=== PATIENT | female | born 1990 ===

== ENCOUNTER 2017-01-01 07:28 | Emergency (ER) | payer BC, OTHER ==
[2017-01-01 07:40] VITALS: BMI 26.6
[2017-01-01] MEDS ORDERED: Iohexol 240 (50 ml) PO ONE (08:34)
[2017-01-01] MEDS ORDERED: Sodium Chloride 0.9% 1,000 ML IV STA (08:35)
[2017-01-01] MEDS ORDERED: Iohexol 240 (50 ml) ONE (08:37)
--- NOTE | 2017-01-01 08:40 | ED PDOC ---
HPI: Abdomen Time Seen by Provider: 01/01/17 08:00 Chief Complaint (Nursing): Abdominal Pain Chief Complaint (Provider): Abdominal pain History Per: Patient History/Exam Limitations: no limitations Onset/Duration Of Symptoms: Days (1) Outside of [place] travel?: No Current Symptoms Are (Timing): Still Present Location Of Pain/Discomfort: RLQ, LLQ Quality Of Discomfort: "Pain" Associated Symptoms: Vomiting (bilious). denies: Diarrhea Additional History Per: Patient Additional Complaint(s): The pt is a 26yo female, PMHx of IBS and colitis, presents to ED for evaluation of severe abdominal pain, present since last night. Pt reports the pain is located in her RLQ but radiates to her LLQ. She reports some associated bilious vomiting; denies any bloody diarrhea. Pt offers no additional medical complaints. Abnormal Vaginal Bleeding: No Past Medical History Reviewed: Historical Data, Nursing Documentation, Vital Signs Vital Signs: Last Vital Signs Temp 97.6 F 01/01/17 14:58 Pulse 78 01/01/17 14:58 Resp 20 01/01/17 14:58 BP 128/76 01/01/17 14:58 Pulse Ox 98 01/01/17 14:58 - Medical History Other PMH: Colitis, IBS - Surgical History Surgical History: No Surg Hx - Family History Family History: States: Unknown Family Hx - Social History Current smoker - smoking cessation education provided: No Alcohol: None Drugs: Cannabis (occaisonal) - Home Medications Home Medications: Ambulatory Orders Medication Instructions Recorded Acetaminophen/Oxycodone Hydr 1 tab PO Q6H PRN #5 tab 01/01/17 [Oxycodone and Acetaminophen 325 mg-2.5 mg] Ibuprofen [Motrin] 600 mg PO Q6H PRN #20 tab 01/01/17 Nitrofurantoin Macrocrystals 100 mg PO BID #14 cap 01/01/17 [Macrobid] Tamsulosin [Flomax] 0.4 mg PO DAILY #14 cap 01/01/17 - Allergies Allergies/Adverse Reactions: Allergies Allergy/AdvReac Type Severity Reaction Status Date / Time No Known Allergies Allergy Verified 01/01/17 07:54 Review of Systems ROS Statement: Except As Marked, All Systems Reviewed And Found Negative Gastrointestinal: Positive for: Vomiting, Abdominal Pain. Negative for: Diarrhea Physical Exam - Reviewed Nursing Documentation Reviewed: Yes Vital Signs Reviewed: Yes - Physical Exam Appears: Positive for: Well, Non-toxic, Uncomfortable Head Exam: Positive for: ATRAUMATIC, NORMAL INSPECTION, NORMOCEPHALIC Skin: Positive for: Normal Color, Warm Eye Exam: Positive for: Normal appearance Neck: Positive for: Normal, Supple Cardiovascular/Chest: Positive for: Regular Rate, Rhythm Respiratory: Positive for: Normal Breath Sounds. Negative for: Respiratory Distress Gastrointestinal/Abdominal: Positive for: Soft, Tenderness (right lower quadrant ). Negative for: Mass, Distended Neurologic/Psych: Positive for: Alert, Oriented - Laboratory Results Result Diagrams: 01/01/17 08:50 01/01/17 08:50 - ECG O2 Sat by Pulse Oximetry: 100 (RA) Pulse Ox Interpretation: Normal Medical Decision Making Medical Decision Making: Time: 829 Impression: abdominal pain r/o appendicitis, intrabdominal abscess Plan: -- CMP -- CBC -- Lipase -- Morphine 4 mg IV -- Zofran 4 mg IV -- IV fluids -- CT AP w/ PO & IV Contrast -- Reassess Scribe Attestation: Documented by Manjula Lozada acting as a scribe for Erich Barrow MD. Provider Attestation: All medical record entries made by the Scribe were at my direction and personally dictated by me. I have reviewed the chart and agree that the record accurately reflects my personal performance of the history, physical exam, medical decision making, and the department course for this patient. I have also personally directed, reviewed, and agree with the discharge instructions and disposition. ED OBSERVATION Date of observation admission: 01/01/17 Time of observation admission: 08:34 - Observation admission statement Patient is being placed in observation because:: Pt awaiting CT AP w/ PO and IV contrast - Progress Note Progress Note: 01/01/17 10:50 Normal white blood count. Normal liver function. 01/01/17 14:08 CT AP Impression: High grade obstruction related proximal 2mm right ureteral calculus. Periureteral inflammatory changes and mild hydronephrosis. No CT finding of acute appendicitis. 01/01/17 14:[address] Khan who reviewed CT and agree with plan for dc and outpt follow up. Informed to send pt home w/ urine strainer. relayed all this information to patient. Pt stable for d.c home. 01/03/17 21:22 Disposition - Clinical Impression Clinical Impression: Nephrolithiasis - Patient ED Disposition Is Patient to be Admitted: No Counseled Patient/Family Regarding: Studies Performed, Diagnosis, Need For Followup - Disposition Referrals: Fátima Khan MD [Medical Doctor] - Disposition: Routine/Home Disposition Time: 12:08 Condition: IMPROVED Additional Instructions: follow up with your urologist as instructed return to the ED with any worsening or concerning symptoms Prescriptions: Acetaminophen/Oxycodone Hydr [Oxycodone and Acetaminophen 325 mg-2.5 mg] 1 tab PO Q6H PRN #5 tab PRN Reason: Pain, Severe (8-10) Ibuprofen [Motrin] 600 mg PO Q6H PRN #20 tab PRN Reason: Pain, Moderate (4-7) Nitrofurantoin Macrocrystals [Macrobid] 100 mg PO BID #14 cap Tamsulosin [Flomax] 0.4 mg PO DAILY #14 cap Instructions: Kidney Stones (ED), How to Strain Your Urine (ED) Forms: [facility] ED School/Work Excuse
[2017-01-01 09:04] LABS: BASO # 0.1 K/uL (0.0-0.2); BASO % 0.6 % (0.0-2.0); EOS # 0.2 K/uL (0.0-0.7); EOS % 1.8 % (0.0-4.0); HEMOGLOBIN 12.9 g/dL (12.0-16.0); LYMPH # 4.6 K/uL (1.0-4.3); LYMPH % 53.8 % (20.0-40.0); MEAN CELL VOLUME 86.5 fl (81.0-99.0); MEAN CORPUSCULAR HEMOGLOBIN 28.4 pg (27.0-31.0); MEAN CORPUSCULAR HGB CONC 32.9 g/dL (33.0-37.0); MEAN PLATELET VOLUME 7.5 fl (7.2-11.7); MONO # 0.6 K/uL (0.0-0.8); MONO % 6.7 % (0.0-10.0); NEUT # 3.2 K/uL (1.8-7.0); NEUT % 37.1 % (50.0-75.0); NRBC % 0.1 % (0.0-0.0); RBC 4.54 Mil/uL (3.80-5.20); RED CELL DISTRIBUTION WIDTH 13.5 % (11.5-14.5); WHITE BLOOD COUNT 8.6 K/uL (4.8-10.8)
[2017-01-01 09:18] LABS: ALB/GLOB RATIO 1.3 (1.0-2.1); ALBUMIN 4.4 g/dL (3.5-5.0); ALT/SGPT 69 U/L (9-52); AST/SGOT 41 U/L (14-36); BLOOD UREA NITROGEN 10 mg/dl (7-17); CALCIUM 9.7 mg/dL (8.4-10.2); GFR AFRICAN-AMERICAN > 60; GFR NON-AFRICAN AMERICAN > 60
[2017-01-01 11:20] LABS: SQUAMOUS EPITHIAL 5 /hpf (0-5); URINE BACTERIA FEW (<OCC); URINE BILIRUBIN NEGATIVE (NEGATIVE); URINE BLOOD LARGE (NEGATIVE); URINE CLARITY SLIGHTY-CLOUDY (Clear); URINE COLOR YELLOW (YELLOW); URINE GLUCOSE (UA) NEG (Normal); URINE LEUKOCYTE ESTERASE NEG Leu/uL (Negative); URINE NITRATE NEGATIVE (NEGATIVE); URINE PROTEIN 30 mg/dL (NEGATIVE); URINE UROBILINOGEN 0.2-1.0 mg/dL (0.2-1.0)
[2017-01-01 12:05] VITALS: PULSE 78; RESP 20
[2017-01-01] MEDS ORDERED: Sodium Chloride 0.9% 50 ML IV ONE (12:46)
[2017-01-01] MEDS ORDERED: Iohexol 300 100 ML IJ ONE (12:46)
--- NOTE | 2017-01-01 14:05 | CT ---
PROCEDURE: CT Abdomen and Pelvis with contrast HISTORY: Right lower quadrant abdominal pain. Hematuria. No elevated white count. COMPARISON: None. TECHNIQUE: Contrast dose: 95 cc Omnipaque 300 Radiation dose: Total exam DLP = 631.76 mGy-cm. This CT exam was performed using one or more of the following dose reduction techniques: Automated exposure control, adjustment of the mA and/or kV according to patient size, and/or use of iterative reconstruction technique. FINDINGS: LOWER THORAX: Unremarkable. LIVER: Indeterminate likely benign mass perhaps a meningioma right hepatic lobe 10 x 11 mm. Hepatic steatosis identified. GALLBLADDER AND BILE DUCTS: Unremarkable. PANCREAS: Unremarkable. No gross lesion or ductal dilatation. SPLEEN: Unremarkable. ADRENALS: Unremarkable. No mass. KIDNEYS AND URETERS: High-grade obstruction right kidney related to proximal calculus measuring 2 mm. Periureteral stranding identified. The right collecting system is mildly dilated. VASCULATURE: Unremarkable. No aortic aneurysm. BOWEL: Unremarkable. No obstruction. No gross mural thickening. APPENDIX: No abnormalities to suggest acute appendicitis. No right lower quadrant inflammatory processes identified. PERITONEUM: Unremarkable. No free fluid. No free air. LYMPH NODES: Unremarkable. No enlarged lymph nodes. BLADDER: Unremarkable. REPRODUCTIVE: Unremarkable. BONES: No acute fracture. OTHER FINDINGS: None. IMPRESSION: High-grade obstruction related proximal 2 mm right ureteral calculus. Periureteral inflammatory changes and mild hydronephrosis. No CT findings of acute appendicitis. Communication of results: I discussed findings directly with referring physician in the emergency department at 13:59. January 01, 2017.
[2017-01-01 14:59] VITALS: BP 128/76; TEMP 97.6
[2017-01-03 21:23] VITALS: O2SAT 100
== END 2017-01-01 14:59 | disposition home or self-care (01) ==
LOC: H.ER 07:28
DX: N13.2 Hydronephrosis with renal and ureteral calculous obstruction (principal); N20.2 Calculus of kidney with calculus of ureter; K58.9 Irritable bowel syndrome, unspecified

== ENCOUNTER 2017-01-09 15:11 | Observation (INO) | payer OTHER ==
[2017-01-09 15:11] VITALS: BMI 26.6
[2017-01-09] MEDS ORDERED: Sodium Chloride 0.9% 1,000 ML IV STA (15:43)
--- NOTE | 2017-01-09 15:46 | ED PDOC ---
HPI: Abdomen Time Seen by Provider: 01/09/17 15:37 Chief Complaint (Nursing): Female Genitourinary History Per: Patient Onset/Duration Of Symptoms: Days (6) Current Symptoms Are (Timing): Still Present Severity: Moderate Pain Scale Rating Of: 5 Location Of Pain/Discomfort: Other (Right flank) Quality Of Discomfort: Aching Associated Symptoms: Nausea Exacerbating Factors: None Alleviating Factors: None Additional Complaint(s): Right flank pain radiates to front. Seen here 6 days ago with right kidney stone. Has not passed stone. No improvement with Percocet. Past Medical History Vital Signs: Last Vital Signs Temp 98 F 01/09/17 15:29 Pulse 66 01/09/17 15:29 Resp 18 01/09/17 15:29 BP 138/88 01/09/17 15:29 Pulse Ox 99 01/09/17 15:47 - Medical History Other PMH: IBS - Family History Family History: States: Unknown Family Hx - Home Medications Home Medications: Ambulatory Orders Medication Instructions Recorded Acetaminophen/Oxycodone Hydr 1 tab PO Q6H PRN #5 tab 01/01/17 [Oxycodone and Acetaminophen 325 mg-2.5 mg] Ibuprofen [Motrin] 600 mg PO Q6H PRN #20 tab 01/01/17 Nitrofurantoin Macrocrystals 100 mg PO BID #14 cap 01/01/17 [Macrobid] Tamsulosin [Flomax] 0.4 mg PO DAILY #14 cap 01/01/17 - Allergies Allergies/Adverse Reactions: Allergies Allergy/AdvReac Type Severity Reaction Status Date / Time No Known Allergies Allergy Verified 01/01/17 07:54 Review of Systems Constitutional: Negative for: Fever Gastrointestinal: Positive for: Nausea Musculoskeletal: Positive for: Back Pain Physical Exam - Physical Exam Appears: Positive for: Non-toxic, Uncomfortable Skin: Positive for: Normal Color, Warm, DRY Gastrointestinal/Abdominal: Positive for: Bowel Sounds, Soft. Negative for: Tenderness Back: Negative for: L CVA Tenderness, R CVA Tenderness - ECG O2 Sat by Pulse Oximetry: 99 Disposition - Clinical Impression Clinical Impression: Nephrolithiasis, Intractable pain - Patient ED Disposition Is Patient to be Admitted: Yes - Disposition Disposition Time: 15:57 Condition: FAIR - Pt Status Changed To: Hospital Disposition Of: Observation - POA Present On Arrival: None
[2017-01-09 16:42] LABS: BASO # 0.1 K/uL (0.0-0.2); BASO % 1.4 % (0.0-2.0); EOS # 0.1 K/uL (0.0-0.7); LYMPH # 3.4 K/uL (1.0-4.3); LYMPH % 55.5 % (20.0-40.0); MEAN CORPUSCULAR HEMOGLOBIN 28.6 pg (27.0-31.0); MEAN CORPUSCULAR HGB CONC 33.2 g/dL (33.0-37.0); MEAN PLATELET VOLUME 7.8 fl (7.2-11.7); MONO # 0.5 K/uL (0.0-0.8); MONO % 7.5 % (0.0-10.0); NEUT # 2.1 K/uL (1.8-7.0); NEUT % 33.6 % (50.0-75.0); RBC 4.18 Mil/uL (3.80-5.20); RED CELL DISTRIBUTION WIDTH 13.3 % (11.5-14.5); WHITE BLOOD COUNT 6.1 K/uL (4.8-10.8)
[2017-01-09 16:57] LABS: ALB/GLOB RATIO 1.4 (1.0-2.1); ALBUMIN 4.4 g/dL (3.5-5.0); ALT/SGPT 46 U/L (9-52); AST/SGOT 37 U/L (14-36); BLOOD UREA NITROGEN 13 mg/dl (7-17); CALCIUM 9.9 mg/dL (8.4-10.2); GFR AFRICAN-AMERICAN > 60; GFR NON-AFRICAN AMERICAN > 60
[2017-01-09 17:28] LABS: PROTHROMBIN TIME 10.9 Seconds (9.8-13.1)
[2017-01-09] MEDS ORDERED: Midazolam 2 MG/2 ML VIAL ONE (18:20)
[2017-01-09] MEDS ORDERED: Propofol 10 mg/ml Inj (20 ML) ONE ×2 (18:20→19:30)
[2017-01-09] MEDS ORDERED: Phenylephrine 10 mg/ml Inj ONE (18:28)
[2017-01-09] MEDS ORDERED: Lactated Ringer's 1,000 ML IV ONE ×2 (18:55→20:53)
[2017-01-09] MEDS ORDERED: cefTRIAXone (Rocephin) 1 gm Inj ONE (19:01)
[2017-01-09] MEDS ORDERED: Dexamethasone 4 mg/1 ml ONE (19:01)
[2017-01-09] MEDS ORDERED: cefTRIAXone (Rocephin) 1 gm Inj IM ONE (19:03)
[2017-01-09] MEDS ORDERED: ePHEDrine 50 mg/ml Inj ONE (19:19)
[2017-01-09] MEDS ORDERED: HYDROmorphone 0.5 mg/0.5 ml ISec IVP PRN (19:54)
[2017-01-09] MEDS ORDERED: BSS 15 ML 15 ML IR ONE (20:01)
[2017-01-09] MEDS ORDERED: Trimethobenzamide 200 mg/2 mL Inj IM ONE (20:12)
[2017-01-09] MEDS ORDERED: BSS 15 ML SOL IR ONE (20:16)
[2017-01-09 21:52] VITALS: BP 126/79; PULSE 90; RESP 19; TEMP 97.7; O2SAT 96
--- NOTE | 2017-01-10 08:12 | CARD ---
APPROVED REPORT EKG Measurement Heart [id number] <Conclusion> Normal sinus rhythm Normal ECG
--- NOTE | 2017-01-12 09:34 | RAD ---
PROCEDURE: Intraoperative Fluoroscopy. HISTORY: Cysto. FINDINGS: Fluoroscopic assistance was provided. Approximately 0.9 minutes fluoroscopy time utilized during this procedure. Please refer to the operative report for additional details.
--- NOTE | 2017-02-16 21:28 | OP ---
PROCEDURE DATE: 01/03/2017 PREOPERATIVE DIAGNOSIS: Acute right renal colic. POSTOPERATIVE DIAGNOSIS: Acute right renal colic. PROCEDURE PERFORMED: Cystoscopy, right ureteroscopy, retrograde pyelogram, and J stent placement. DESCRIPTION OF PROCEDURE: Under general anesthesia, the patient was placed on the operating table in the dorsal lithotomy position. The area of the groin was draped and prepped in a sterile manner. At this time, using a short ureteroscope, I entered into the bladder atraumatically and identified the right urethral orifice. At this time, I engaged it, I did a right retrograde pyelogram. There appeared to be a ureteral stenosis of the lower portion of the ureter. I did not see any filling defects. Following this, I did direct ureteroscopy from the bladder to the area of the renal pelvis. There was no calculi seen. The most I could see at this point was an area of stenotic region in the lower portion of the ureter. With this identification in the pyelogram, I then deployed a 6-[place] multi-length double-J stent and under fluoroscopy that was place in to good position. Once it was done, the patient was taken from the operating room in good condition. Fátima Khan MD
== END 2017-01-09 22:13 | disposition home or self-care (01) ==
LOC: H.ER 15:11 → H.ERHOLD 15:55 → UNDODISOB 19:34 → H.MEDSURG1 21:22
PROVIDERS: ADMIT Urology; ATTEND Urology
DX: N20.0 Calculus of kidney (principal); K58.9 Irritable bowel syndrome, unspecified

== ENCOUNTER 2017-01-13 18:10 | Observation (INO) | payer OTHER ==
[2017-01-13 18:11] VITALS: BMI 26.6
[2017-01-13] MEDS ORDERED: Sodium Chloride 0.9% 1,000 ML IV STA (20:18)
--- NOTE | 2017-01-13 20:23 | ED PDOC ---
HPI: Abdomen Time Seen by Provider: 01/13/17 20:05 Chief Complaint (Nursing): Female Genitourinary Chief Complaint (Provider): right flank pain History Per: Patient History/Exam Limitations: no limitations Onset/Duration Of Symptoms: Hrs Current Symptoms Are (Timing): Still Present Location Of Pain/Discomfort: Other (right flank) Quality Of Discomfort: Cramping Associated Symptoms: Nausea, Vomiting, Urinary Symptoms (hematuria) Additional Complaint(s): 26 y/o female presents for eval of right flank pain x 4 hours. Patient was diagnosed with 2 mm renal stone 01/01/17, had stent placed 01/09/[address] Khan and was found to have ureteral stricture. Stent was removed in office today and patient notes returning pain with hematuria after going home. Associated nausea, vomiting. Patient was advised by Dr. Khan to come to ED for pain control. Denies fever, chest pain, shortness of breath, dysuria, vaginal bleeding/discharge. Tramadol taken 16:00. Past Medical History Reviewed: Historical Data, Nursing Documentation, Vital Signs Vital Signs: Last Vital Signs Temp 97.7 F 01/13/17 18:29 Pulse 68 01/13/17 18:29 Resp 18 01/13/17 18:29 BP 146/104 H 01/13/17 18:29 Pulse Ox 100 01/13/17 21:21 - Medical History PMH: No Chronic Diseases - Family History Family History: States: Unknown Family Hx - Home Medications Home Medications: Ambulatory Orders Medication Instructions Recorded Ibuprofen [Motrin] 600 mg PO Q6H PRN #20 tab 01/01/17 Tamsulosin [Flomax] 0.4 mg PO DAILY #14 cap 01/01/17 ALPRAZolam [Xanax] 1 mg PO HS PRN 01/09/17 Citalopram Hydrobromide [Celexa] 10 mg PO DAILY 01/09/17 Eluxadoline [Viberzi] 100 mg PO BID 01/09/17 Ethinyl Estradiol/Drospirenone 1 tab PO DAILY 01/09/17 [Destinee 28 Tablet] Lamotrigine [Lamictal] 200 mg PO HS 01/09/17 - Allergies Allergies/Adverse Reactions: Allergies Allergy/AdvReac Type Severity Reaction Status Date / Time No Known Allergies Allergy Verified 01/01/17 07:54 Review of Systems ROS Statement: Except As Marked, All Systems Reviewed And Found Negative Gastrointestinal: Positive for: Nausea, Vomiting, Abdominal Pain Physical Exam - Reviewed Nursing Documentation Reviewed: Yes Vital Signs Reviewed: Yes - Physical Exam Appears: Positive for: Well, Non-toxic, Uncomfortable Head Exam: Positive for: ATRAUMATIC, NORMAL INSPECTION, NORMOCEPHALIC Skin: Positive for: Normal Color Eye Exam: Positive for: Normal appearance ENT: Positive for: Normal ENT Inspection Cardiovascular/Chest: Positive for: Regular Rate, Rhythm Respiratory: Positive for: Normal Breath Sounds Gastrointestinal/Abdominal: Positive for: Bowel Sounds, Soft, Tenderness (right flank, RUQ, RLQ) Back: Positive for: R CVA Tenderness Extremity: Positive for: Normal ROM Neurologic/Psych: Positive for: Alert, Oriented - Laboratory Results Result Diagrams: 01/13/17 20:35 01/13/17 20:35 - ECG O2 Sat by Pulse Oximetry: 100 - Progress ED Course And Treament: labs, urine, IV fluids, IV toradol, IV zofran On re-eval, patient still with pain/nausea. IV morphine, IV zofran ordered Case discussed with Dr. Khan, who agrees with plan to place in observation for IV hydration, IV pain control, and anti-inflammatories. Recommending placement under Hospitalist service and will consult in am. Disposition - Clinical Impression Clinical Impression: Intractable pain, Renal colic on right side - Patient ED Disposition Is Patient to be Admitted: Yes - Disposition Disposition Time: 21:35 Condition: FAIR - Pt Status Changed To: Hospital Disposition Of: Observation
[2017-01-13 20:46] LABS: BASO # 0.1 K/uL (0.0-0.2); BASO % 0.7 % (0.0-2.0); EOS # 0.2 K/uL (0.0-0.7); EOS % 2.2 % (0.0-4.0); HEMOGLOBIN 13.5 g/dL (12.0-16.0); LYMPH # 2.7 K/uL (1.0-4.3); LYMPH % 38.2 % (20.0-40.0); MEAN CORPUSCULAR HEMOGLOBIN 28.6 pg (27.0-31.0); MEAN CORPUSCULAR HGB CONC 33.3 g/dL (33.0-37.0); MEAN PLATELET VOLUME 7.3 fl (7.2-11.7); MONO # 0.7 K/uL (0.0-0.8); MONO % 9.7 % (0.0-10.0); NEUT # 3.5 K/uL (1.8-7.0); NEUT % 49.2 % (50.0-75.0); NRBC % 0.1 % (0.0-0.0); RBC 4.7 Mil/uL (3.80-5.20); RED CELL DISTRIBUTION WIDTH 13.4 % (11.5-14.5); WHITE BLOOD COUNT 7.1 K/uL (4.8-10.8)
[2017-01-13 20:51] LABS: SQUAMOUS EPITHIAL 6 /hpf (0-5); URINE AMORPHOUS SEDIMENT RARE /ul (<OCC); URINE BACTERIA FEW (<OCC); URINE BILIRUBIN NEGATIVE (NEGATIVE); URINE BLOOD MODERATE (NEGATIVE); URINE CLARITY SLIGHTY-CLOUDY (Clear); URINE COLOR YELLOW (YELLOW); URINE GLUCOSE (UA) NEG (Normal); URINE HYALINE CAST 0-2 /hpf (0-2); URINE LEUKOCYTE ESTERASE NEG Leu/uL (Negative); URINE NITRATE NEGATIVE (NEGATIVE); URINE PROTEIN 100 mg/dL (NEGATIVE); URINE UROBILINOGEN 0.2-1.0 mg/dL (0.2-1.0)
[2017-01-13 20:58] LABS: ALB/GLOB RATIO 1.3 (1.0-2.1); ALBUMIN 4.5 g/dL (3.5-5.0); ALT/SGPT 64 U/L (9-52); AST/SGOT 36 U/L (14-36); BLOOD UREA NITROGEN 12 mg/dl (7-17); CALCIUM 9.7 mg/dL (8.4-10.2); GFR AFRICAN-AMERICAN > 60; GFR NON-AFRICAN AMERICAN > 60
--- NOTE | 2017-01-13 21:42 | CP.PCM.HP ---
History of Present Illness - History of Present Illness History of Present Illness: Urologist: Dr Khan Chief complaint: Right Flank pain HPI: 26 years old female with hx of IBS and Nepohrolithiasis dx 01/01/17 with right renal stent placed on 01/09/17. She was sent to the ED by her Urologist because of a 4 hours of severe crampy left flank pain radiating anterior to the abdomen and down to the right groin, associated with nausea, vomits and some blood in the urine. The pain is not relieved with Tramadol. This started some hours after the right renal stent was removed. No fever, dysuria nor vaginal discharge. PMH; IBS; Nephrolithiasis PSH: Cystoscopy and Ureteral stent placement. SH: Light smoker: no illegal drug use; No alcohol; Live with family FH: Unknown family history Allergies: NKDA Present on Admission - Present on Admission Any Indicators Present on Admission: No History of DVT/PE: No History of Uncontrolled Diabetes: No Urinary Catheter: No Decubitus Ulcer Present: No Review of Systems - Constitutional Constitutional: absent: Anorexia, Chills, Fever, Headache, Lethargy - EENT Eyes: Requires Corrective Lenses. absent: Diplopia, Floaters, Sees Flashes Ears: absent: Decreased Hearing, Ear Discharge, Ear Pain, Tinnitus Nose/Mouth/Throat: absent: Epistaxis, Nasal Congestion, Nasal Discharge, Sinus Pain, Sinus Pressure - Cardiovascular Cardiovascular: absent: Chest Pain, Dyspnea, Leg Edema - Respiratory Respiratory: absent: Cough, Wheezing, Stridor - Gastrointestinal Gastrointestinal: Nausea, Vomiting. absent: Hematemesis, Hematochezia, Melena Additional comments: RLQ abdominal pain,Right flank pain - Genitourinary Genitourinary: Flank Pain, Hematuria. absent: Dysuria, Urinary Frequency - Musculoskeletal Musculoskeletal: absent: Arthralgias, Muscle Weakness, Myalgias, Numbness - Integumentary Integumentary: absent: Rash, Skin Pain, Skin Ulcer, Sores, Striae, Swelling - Neurological Neurological: absent: Confusion, Numbness, Focal Weakness, Headaches, Weakness - Psychiatric Psychiatric: absent: Anxiety, Depression, Tactile Hallucinations - Endocrine Endocrine: absent: Palpitations, Polydipsia, Polyphagia, Polyuria - Hematologic/Lymphatic Hematologic: absent: Easy Bleeding, Easy Bruising Past Patient History - Past Social History Smoking Status: Light Smoker < 10 Cigarettes Daily - GASTROINTESTINAL Hx Colitis: Yes - PSYCHIATRIC Hx Substance Use: No - SURGICAL HISTORY Hx Surgeries: No Meds Allergies/Adverse Reactions: Allergies Allergy/AdvReac Type Severity Reaction Status Date / Time No Known Allergies Allergy Verified 01/01/17 07:54 Physical Exam - Constitutional Appears: No Acute Distress - Head Exam Head Exam: ATRAUMATIC, NORMAL INSPECTION, NORMOCEPHALIC - Eye Exam Eye Exam: EOMI, Normal appearance Pupil Exam: NORMAL ACCOMODATION, PERRL - ENT Exam ENT Exam: Mucous Membranes Moist - Neck Exam Neck exam: Positive for: Full Rom, Normal Inspection. Negative for: Lymphadenopathy, Tenderness - Respiratory Exam Respiratory Exam: Clear to Auscultation Bilateral. absent: Rales, Rhonchi, Wheezes - Cardiovascular Exam Cardiovascular Exam: REGULAR RHYTHM, RRR, +S1, +S2. absent: Gallop, JVD - GI/Abdominal Exam GI & Abdominal Exam: Normal Bowel Sounds, Soft. absent: Mass, Organomegaly Additional comments: pain at RLQ on palpation - Rectal Exam Rectal Exam: Deferred - Extremities Exam Extremities exam: Positive for: full ROM, normal inspection. Negative for: pedal edema - Back Exam Back exam: CVA tenderness (R), NORMAL INSPECTION - Neurological Exam Neurological exam: Alert, CN II-XII Intact, Oriented x3, Reflexes Normal - Psychiatric Exam Psychiatric exam: Normal Affect, Normal Mood - Skin Skin Exam: Dry, Intact, Normal Color, Warm Results - Vital Signs Recent Vital Signs: Last Vital Signs Temp 97.7 F 01/13/17 18:29 Pulse 68 01/13/17 18:29 Resp 18 01/13/17 18:29 BP 146/104 H 01/13/17 18:29 Pulse Ox 100 01/13/17 21:36 - Labs Result Diagrams: 01/13/17 20:35 01/13/17 20:35 Labs: Laboratory Results - last 24 hr 01/13/17 01/13/17 01/13/17 20:35 20:35 20:37 WBC 7.1 RBC 4.70 Hgb 13.5 Hct 40.4 MCV 86.0 MCH 28.6 MCHC 33.3 RDW 13.4 Plt Count 290 MPV 7.3 Neut % (Auto) 49.2 L Lymph % (Auto) 38.2 [place] % (Auto) 9.7 Eos % (Auto) 2.2 Baso % (Auto) 0.7 Neut # 3.5 Lymph # 2.7 [place] # 0.7 Eos # 0.2 Baso # 0.1 Sodium 138 Potassium 4.0 Chloride 104 Carbon Dioxide 23 Anion Gap 15 BUN 12 Creatinine 0.8 Est GFR ( Amer) > 60 Est GFR (Non-Af Amer) > 60 Random Glucose 107 H Calcium 9.7 Total Bilirubin 0.3 AST 36 ALT 64 H D Alkaline Phosphatase 81 Total Protein 7.9 Albumin 4.5 Globulin 3.4 Albumin/Globulin Ratio 1.3 Urine Color Yellow Urine Clarity Slighty-cloudy Urine pH 6.0 Ur Specific [place] 1.019 Urine Protein 100 Urine Glucose (UA) Neg Urine Ketones Negative Urine Blood Moderate Urine Nitrate Negative Urine Bilirubin Negative Urine Urobilinogen 0.2-1.0 Ur Leukocyte Esterase Neg Urine RBC (Auto) 94 H Urine Microscopic WBC 7 H Ur Squamous Epith Cells 6 H Amorphous Sediment Rare H Urine Bacteria Few H Hyaline Casts 0-2 Assessment & Plan - Assessment and Plan (Free Text) Assessment: #. Renal Colic #. Nephrolithiasis Plan: 26 years old female with hx of IBS and Nepohrolithiasis dx 01/01/17 with right renal stent placed on 01/09/17. She was sent to the ED by her Urologist because of a 4 hours of severe crampy left flank pain radiating anterior to the abdomen and down to the right groin. This started some hours after the right renal stent was removed. No fever, dysuria nor vaginal discharge. #. Renal Colic - Consult Dr Khan urology - IV Fluids NS at 150mls/hr - Pain management with Toradol #. Nephrolithiasis - Repeat renal US in AM if pain continues #. DVT Prophylaxis with SCD #. Code Status: Full - Date & Time Date: 01/13/17 Time: 21:41
[2017-01-13] MEDS: Sodium Chloride 0.9% 1,000 ML IV SCH (23:27)
[2017-01-14 08:14] VITALS: RESP 20
[2017-01-14] MEDS ORDERED: Pneumococcal 23-Valent Vaccine IM ONE (09:00)
[2017-01-14] MEDS: Sodium Chloride 0.9% 1,000 ML IV SCH (12:22)
[2017-01-14 16:13] VITALS: BP 115/76; PULSE 70; TEMP 98.1; O2SAT 97
--- NOTE | 2017-01-14 17:14 | US ---
PROCEDURE: Ultrasound of the Kidneys HISTORY: md order COMPARISON: None available. TECHNIQUE: Sonogram of the kidneys. FINDINGS: RIGHT KIDNEY: Measures: 10.6 cm. Normal in size, contour and echogenicity. No stone, solid mass lesion or hydronephrosis visualized. LEFT KIDNEY: Measures: 10.9 cm. Normal in size, contour and echogenicity. No stone, solid mass lesion or hydronephrosis visualized. OTHER FINDINGS: None. IMPRESSION: Unremarkable renal sonogram.
--- NOTE | 2017-01-14 17:42 | CP.PCM.DIS ---
Provider - Provider Date of Admission: 01/13/17 21:33 Attending physician: Ke Pizarro Consults: Urology: Dr Khan Time Spent in preparation of Discharge (in minutes): 25 Diagnosis - Discharge Diagnosis (1) Right flank pain Status: Acute (2) Intractable pain Status: Acute (3) Nephrolithiasis Status: Resolved Comment: recent history of Ureteral stone with hydronephrosis s/p Stent placement and removal ( 1 wk ago) Hospital Course - Lab Results Lab Results: Most Recent Lab Values WBC 7.1 K/uL (4.8-10.8) 01/13/17 20:35 RBC 4.70 Mil/uL (3.80-5.20) 01/13/17 20:35 Hgb 13.5 g/dL (12.0-16.0) 01/13/17 20:35 Hct 40.4 % (34.0-47.0) 01/13/17 20:35 MCV 86.0 fl (81.0-99.0) 01/13/17 20:35 MCH 28.6 pg (27.0-31.0) 01/13/17 20:35 MCHC 33.3 g/dL (33.0-37.0) 01/13/17 20:35 RDW 13.4 % (11.5-14.5) 01/13/17 20:35 Plt Count 290 K/uL (130-400) 01/13/17 20:35 MPV 7.3 fl (7.2-11.7) 01/13/17 20:35 Neut % (Auto) 49.2 % (50.0-75.0) L 01/13/17 20:35 Lymph % (Auto) 38.2 % (20.0-40.0) 01/13/17 20:35 [place] % (Auto) 9.7 % (0.0-10.0) 01/13/17 20:35 Eos % (Auto) 2.2 % (0.0-4.0) 01/13/17 20:35 Baso % (Auto) 0.7 % (0.0-2.0) 01/13/17 20:35 Neut # 3.5 K/uL (1.8-7.0) 01/13/17 20:35 Lymph # 2.7 K/uL (1.0-4.3) 01/13/17 20:35 [place] # 0.7 K/uL (0.0-0.8) 01/13/17 20:35 Eos # 0.2 K/uL (0.0-0.7) 01/13/17 20:35 Baso # 0.1 K/uL (0.0-0.2) 01/13/17 20:35 Sodium 138 mmol/l (132-148) 01/13/17 20:35 Potassium 4.0 MMOL/L (3.6-5.0) 01/13/17 20:35 Chloride 104 mmol/L (98-107) 01/13/17 20:35 Carbon Dioxide 23 mmol/L (22-30) 01/13/17 20:35 Anion Gap 15 (10-20) 01/13/17 20:35 BUN 12 mg/dl (7-17) 01/13/17 20:35 Creatinine 0.8 mg/dL (0.7-1.2) 01/13/17 20:35 Est GFR ( Amer) > 60 01/13/17 20:35 Est GFR (Non-Af Amer) > 60 01/13/17 20:35 Random Glucose 107 mg/dL (65-105) H 01/13/17 20:35 Calcium 9.7 mg/dL (8.4-10.2) 01/13/17 20:35 Total Bilirubin 0.3 mg/dl (0.2-1.3) 01/13/17 20:35 AST 36 U/L (14-36) 01/13/17 20:35 ALT 64 U/L (9-52) H D 01/13/17 20:35 Alkaline Phosphatase 81 U/L (38-126) 01/13/17 20:35 Total Protein 7.9 G/DL (6.3-8.2) 01/13/17 20:35 Albumin 4.5 g/dL (3.5-5.0) 01/13/17 20:35 Globulin 3.4 gm/dL (2.2-3.9) 01/13/17 20:35 Albumin/Globulin Ratio 1.3 (1.0-2.1) 01/13/17 20:35 Urine Color Yellow (YELLOW) 01/13/17 20:37 Urine Clarity Slighty-cloudy (Clear) 01/13/17 20:37 Urine pH 6.0 (5.0-8.0) 01/13/17 20:37 Ur Specific [place] 1.019 (1.003-1.030) 01/13/17 20:37 Urine Protein 100 mg/dL (NEGATIVE) 01/13/17 20:37 Urine Glucose (UA) Neg mg/dL (Normal) 01/13/17 20:37 Urine Ketones Negative mg/dL (NEGATIVE) 01/13/17 20:37 Urine Blood Moderate (NEGATIVE) 01/13/17 20:37 Urine Nitrate Negative (NEGATIVE) 01/13/17 20:37 Urine Bilirubin Negative (NEGATIVE) 01/13/17 20:37 Urine Urobilinogen 0.2-1.0 mg/dL (0.2-1.0) 01/13/17 20:37 Ur Leukocyte Esterase Neg [place]/uL (Negative) 01/13/17 20:37 Urine RBC (Auto) 94 /hpf (0-3) H 01/13/17 20:37 Urine Microscopic WBC 7 /hpf (0-5) H 01/13/17 20:37 Ur Squamous Epith Cells 6 /hpf (0-5) H 01/13/17 20:37 Amorphous Sediment Rare /ul (<OCC) H 01/13/17 20:37 Urine Bacteria Few (<OCC) H 01/13/17 20:37 Hyaline Casts 0-2 /hpf (0-2) 01/13/17 20:37 - Hospital Course Hospital Course: 26 years old female with hx of IBS and Nephrolithiasis dx 01/01/17 , had a right renal stent placed on 01/09/17. She was sent to the ED by her Urologist because of 4 hours of severe crampy left flank pain radiating anterior to the abdomen and down to the right groin, associated with nausea, vomits and some blood in the urine. The pain is not relieved with Tramadol. This started some hours after the right renal stent was removed. No fever, dysuria nor vaginal discharge. Renal Sonogram was negative, no Hydronephrosis. Patient was started on IV pain meds , IVF hydration and Urology was consulted. Her pain resolved, cleared by Dr Khan for discharge. Discharge Exam - Head Exam Head Exam: ATRAUMATIC, NORMAL INSPECTION, NORMOCEPHALIC - Eye Exam Eye Exam: EOMI, Normal appearance, PERRL Pupil Exam: NORMAL ACCOMODATION - ENT Exam ENT Exam: Mucous Membranes Moist, Normal External Ear Exam - Neck Exam Neck exam: Full Rom - Respiratory Exam Respiratory Exam: NORMAL BREATHING PATTERN. absent: Respiratory Distress - Cardiovascular Exam Cardiovascular Exam: REGULAR RHYTHM, +S1, +S2 - GI/Abdominal Exam GI & Abdominal Exam: Normal Bowel Sounds, Soft. absent: Tenderness - Extremities Exam Extremities exam: full ROM, normal capillary refill, normal inspection, pedal pulses present - Back Exam Back exam: FULL ROM. absent: CVA tenderness (L), CVA tenderness (R), paraspinal tenderness, vertebral tenderness - Neurological Exam Neurological exam: Alert, Normal Gait, Oriented x3, Reflexes Normal - Psychiatric Exam Psychiatric exam: Normal Affect, Normal Mood - Skin Skin Exam: Dry, Intact, Normal Color, Warm Discharge Plan - Discharge Medications Prescriptions: Ibuprofen [Motrin Tab] 600 mg PO Q6H PRN #20 tab PRN Reason: Pain, Mild (1-3) traMADol [Ultram] 50 mg PO TID PRN #15 tab PRN Reason: Pain, Moderate (4-7) - Follow Up Plan Condition: GOOD Disposition: HOME/ ROUTINE Instructions: Renal Colic (GEN) Additional Instructions: ff up with Dr Erin palm appt with PMD in 1-2 wks Return to ED if with fever, severe pain Referrals: Fátima Khan MD [Medical Doctor] -
== END 2017-01-14 18:13 | disposition home or self-care (01) ==
LOC: H.ER 18:10 → H.ERHOLD 21:33 → H.MEDSURG1 23:02
PROVIDERS: ADMIT Internal Medicine; ATTEND Internal Medicine
DX: R10.9 Unspecified abdominal pain (principal); K58.9 Irritable bowel syndrome, unspecified; Z23 Encounter for immunization; R11.2 Nausea with vomiting, unspecified; R31.9 Hematuria, unspecified